=== PATIENT | male | born 1965 | race Two or more races ===

== ENCOUNTER 2020-03-19 06:11 | Emergency (ER) | payer OTHER ==
[~2020-03-19] VITALS: Ht 180.3 cm; Wt 97.5 kg
[2020-03-19] MEDS ORDERED: LIPITOR (06:25)
[2020-03-19] MEDS ORDERED: AZOR 10-40 MG1 EACH (06:26)
[2020-03-19] MEDS ORDERED: LEVSIN/SL0.125 MG SL (11:47)
[2020-03-19] MEDS ORDERED: ONDANSETRON ODT4 MG SL (11:47)
[2020-03-19] MEDS ORDERED: PEPCID AC20 MG PO (11:47)
[2020-03-19] MEDS ORDERED: KETO10TA2 PO (11:47)
== END 2020-03-19 12:19 | disposition home or self-care (01) ==
LOC: ER 06:11
DX: K80.20 Calculus of gallbladder without cholecystitis without obstruction (principal); R10.11 Right upper quadrant pain

== ENCOUNTER 2020-05-10 08:08 | Inpatient (IN) | payer OTHER ==
[~2020-05-10] VITALS: Ht 180.3 cm; Wt 97.5 kg
[~2020-05-10 08:08] MED LIST: AZOR 10-40 MG1 EACH; KETO10TA2 PO; LEVSIN/SL0.125 MG SL; LIPITOR; ONDANSETRON ODT4 MG SL; PEPCID AC20 MG PO
[2020-05-10] MEDS ORDERED: ATORVASTATIN CA20 MG (13:10)
[2020-05-10] MEDS ORDERED: HYDROCHLOROTHIA25 MG (13:10)
== END 2020-05-12 13:59 | disposition home or self-care (01) | DRG 418 ==
LOC: CIR.AMB 08:08 → SURH 13:09 → O/R 13:09 → SURH 13:44
PROVIDERS: ADMIT Surgery; ATTEND Surgery
PROC: BF53200 Other Imaging of Gallbladder and Bile Ducts using Fluorescing Agent, Indocyanine Green Dye, Intraoperative (ICD-10-PCS; 2020-05-10)
PROC: 0FT44ZZ Resection of Gallbladder, Percutaneous Endoscopic Approach (ICD-10-PCS; principal; 2020-05-10 07:00)
DX: K80.00 Calculus of gallbladder with acute cholecystitis without obstruction (principal); K82.1 Hydrops of gallbladder; I10 Essential (primary) hypertension